=== PATIENT | male | born 1965 | race Caucasian/White ===

== ENCOUNTER 2021-10-15 08:01 | Outpatient (CLI) | payer OTHER | END 2021-10-15 08:02 | disposition home or self-care (01) | LOC: CSHWCC 08:01 | PROVIDERS: ATTEND Nurse Practitioner Family | DX: T81.89XA Other complications of procedures, not elsewhere classified, initial encounter (principal); G89.11 Acute pain due to trauma; M71.321 Other bursal cyst, right elbow; T81.30XS Disruption of wound, unspecified, sequela; Z72.0 Tobacco use | CPT/HCPCS: 97605; 99203; G0463 ==

== ENCOUNTER 2021-10-18 09:23 | Outpatient (CLI) | payer OTHER | END 2021-10-18 09:24 | disposition home or self-care (01) | LOC: CSHWCC 09:23 | PROVIDERS: ATTEND Nurse Practitioner Family | DX: T81.89XA Other complications of procedures, not elsewhere classified, initial encounter (principal); G89.11 Acute pain due to trauma; M71.321 Other bursal cyst, right elbow; T81.30XS Disruption of wound, unspecified, sequela; Z72.0 Tobacco use | CPT/HCPCS: 97605 ==

== ENCOUNTER 2021-10-21 11:15 | Outpatient (CLI) | payer OTHER | END 2021-10-21 11:16 | disposition home or self-care (01) | LOC: CSHWCC 11:15 | PROVIDERS: ATTEND Nurse Practitioner Family | DX: T81.89XD Other complications of procedures, not elsewhere classified, subsequent encounter (principal); T81.30XD Disruption of wound, unspecified, subsequent encounter; M71.321 Other bursal cyst, right elbow; G89.11 Acute pain due to trauma; Z72.0 Tobacco use ==

== ENCOUNTER 2021-10-25 10:32 | Outpatient (CLI) | payer OTHER | END 2021-10-25 10:33 | disposition home or self-care (01) | LOC: CSHWCC 10:32 | PROVIDERS: ATTEND Nurse Practitioner Family | DX: T81.89XD Other complications of procedures, not elsewhere classified, subsequent encounter (principal); T81.30XD Disruption of wound, unspecified, subsequent encounter; G89.11 Acute pain due to trauma; M71.321 Other bursal cyst, right elbow; Z72.0 Tobacco use ==

== ENCOUNTER 2021-10-28 12:47 | Outpatient (CLI) | payer OTHER, SELFPAY | END 2021-10-28 12:48 | disposition home or self-care (01) | LOC: CSHWCC 12:47 | PROVIDERS: ATTEND Nurse Practitioner Family | DX: T81.30XS Disruption of wound, unspecified, sequela (principal); G89.11 Acute pain due to trauma; M71.321 Other bursal cyst, right elbow; T81.89XD Other complications of procedures, not elsewhere classified, subsequent encounter; Z72.0 Tobacco use | CPT/HCPCS: 99212; G0463 ==

== ENCOUNTER 2021-11-01 08:28 | Outpatient (CLI) | payer OTHER, SELFPAY | END 2021-11-01 08:29 | disposition home or self-care (01) | LOC: CSHWCC 08:28 | PROVIDERS: ATTEND Nurse Practitioner Family | DX: T81.89XD Other complications of procedures, not elsewhere classified, subsequent encounter (principal); T81.30XD Disruption of wound, unspecified, subsequent encounter; M71.321 Other bursal cyst, right elbow; G89.11 Acute pain due to trauma; Z72.0 Tobacco use | CPT/HCPCS: 99212; G0463 ==

== ENCOUNTER 2021-11-04 13:26 | Outpatient (CLI) | payer OTHER | END 2021-11-04 13:27 | disposition home or self-care (01) | LOC: CSHWCC 13:26 | PROVIDERS: ATTEND Nurse Practitioner Family | DX: T81.89XD Other complications of procedures, not elsewhere classified, subsequent encounter (principal); T81.30XD Disruption of wound, unspecified, subsequent encounter; M71.321 Other bursal cyst, right elbow; G89.11 Acute pain due to trauma; Z72.0 Tobacco use | CPT/HCPCS: 99212; G0463 ==

== ENCOUNTER 2021-11-08 09:43 | Outpatient (CLI) | payer OTHER | END 2021-11-08 09:44 | disposition home or self-care (01) | LOC: CSHWCC 09:43 | PROVIDERS: ATTEND Nurse Practitioner Family | DX: T81.89XD Other complications of procedures, not elsewhere classified, subsequent encounter (principal); G89.11 Acute pain due to trauma; M71.321 Other bursal cyst, right elbow; T81.30XS Disruption of wound, unspecified, sequela; Z72.0 Tobacco use | CPT/HCPCS: 99212; G0463 ==

== ENCOUNTER 2021-11-11 08:18 | Outpatient (CLI) | payer OTHER | END 2021-11-11 08:19 | disposition home or self-care (01) | LOC: CSHWCC 08:18 | PROVIDERS: ATTEND Nurse Practitioner Family | DX: T81.89XD Other complications of procedures, not elsewhere classified, subsequent encounter (principal); T81.30XD Disruption of wound, unspecified, subsequent encounter; M71.321 Other bursal cyst, right elbow; G89.11 Acute pain due to trauma; Z72.0 Tobacco use ==

== ENCOUNTER 2021-11-19 11:21 | Outpatient (CLI) | payer OTHER | END 2021-11-19 11:22 | disposition home or self-care (01) | LOC: CSHWCC 11:21 | PROVIDERS: ATTEND Nurse Practitioner Family | DX: T81.89XD Other complications of procedures, not elsewhere classified, subsequent encounter (principal); T81.30XD Disruption of wound, unspecified, subsequent encounter; G89.11 Acute pain due to trauma; M71.321 Other bursal cyst, right elbow; Z72.0 Tobacco use | CPT/HCPCS: 99212; G0463 ==

== ENCOUNTER 2021-11-26 13:54 | Outpatient (CLI) | payer SELFPAY | END 2021-11-26 13:55 | disposition home or self-care (01) | LOC: CSHWCC 13:54 | PROVIDERS: ATTEND Nurse Practitioner Family | DX: T81.89XD Other complications of procedures, not elsewhere classified, subsequent encounter (principal); T81.30XD Disruption of wound, unspecified, subsequent encounter; M71.321 Other bursal cyst, right elbow; G89.11 Acute pain due to trauma; Z72.0 Tobacco use ==

== ENCOUNTER 2021-12-03 08:15 | Outpatient (CLI) | payer OTHER | END 2021-12-03 08:16 | disposition home or self-care (01) | LOC: CSHWCC 08:15 | PROVIDERS: ATTEND Nurse Practitioner Family | DX: T81.89XD Other complications of procedures, not elsewhere classified, subsequent encounter (principal) | CPT/HCPCS: 99213; G0463 ==

== ENCOUNTER 2021-12-14 13:01 | Outpatient (CLI) | payer SELFPAY | END 2021-12-14 13:02 | disposition home or self-care (01) | LOC: CSHWCC 13:01 | PROVIDERS: ATTEND Nurse Practitioner Family | DX: T81.89XD Other complications of procedures, not elsewhere classified, subsequent encounter (principal) ==

== ENCOUNTER 2021-12-21 14:26 | Outpatient (CLI) | payer OTHER | END 2021-12-21 14:27 | disposition home or self-care (01) | LOC: CSHWCC 14:26 | PROVIDERS: ATTEND Nurse Practitioner Family | DX: T81.89XD Other complications of procedures, not elsewhere classified, subsequent encounter (principal) ==